=== PATIENT | female | born 1960 | race Caucasian/White ===

== ENCOUNTER 2022-08-08 13:23 | Emergency (ER) | payer MEDICAID ==
[~2022-08-08] VITALS: Ht 157.5 cm; Wt 82.0 kg
[2022-08-08 13:32] VITALS: BP 137/63
[2022-08-08] MEDS ORDERED: IBUPROFEN 600MG TABLET PO ONE (13:45)
[2022-08-08] MEDS ORDERED: IBUP-2029 MT (15:51)
== END 2022-08-08 16:50 | disposition home or self-care (01) ==
LOC: ER 14:15
DX: M79.602 Pain in left arm (principal); E11.9 Type 2 diabetes mellitus without complications; I10 Essential (primary) hypertension; Z88.8 Allergy status to other drugs, medicaments and biological substances
CPT/HCPCS: 71101; 73030; 99284; A4565